=== PATIENT | female | born 2000 | race Two or more races ===

== ENCOUNTER 2020-10-20 19:23 | Emergency (ER) | payer OTHER ==
[~2020-10-20] VITALS: Ht 154.9 cm; Wt 83.2 kg
[2020-10-20 19:31] VITALS: BP 117/75
--- NOTE | 2020-10-20 19:53 | NUR ---
pt discahrged from lobby by midlevel provider.
== END 2020-10-20 19:54 | disposition home or self-care (01) ==
LOC: ED 19:30
DX: U07.1 COVID-19 (principal); B34.9 Viral infection, unspecified
CPT/HCPCS: 99283; U0003; U0005